=== PATIENT | male | born 1985 | race Hispanic/Latino ===

== ENCOUNTER 2022-10-17 20:54 | Emergency (ER) | payer OTHER ==
[~2022-10-17] VITALS: Ht 177.8 cm; Wt 99.8 kg
[2022-10-17 21:33] LABS: HEMATOCRIT 44.7 % (42-54); MEAN CORPUSCULAR HEMOGLOBIN 30.2 pg (27.0-33.0); MEAN CORPUSCULAR HGB CONC 33.3 g/dL (32.0-36.0); MEAN CORPUSCULAR VOLUME 90.5 fL (79-99); RED BLOOD CELL COUNT(AUTO) 4.94 MIL/uL (4.50-6.20); RED CELL DISTRIBUTION WIDTH 12.4 % (11.0-15.5); WHITE BLOOD COUNT (AUTO) 10.4 K/uL (4.8-10.8)
[2022-10-17 21:42] LABS: POTASSIUM 4.4 mmol/L (3.5-5.1)
[2022-10-17 21:47] LABS: TOTAL PROTEIN, SERUM 7.7 g/dL (6.0-8.3)
[2022-10-17 22:40] VITALS: BP 124/76
== END 2022-10-17 23:00 | disposition home or self-care (01) ==
LOC: EDH 20:54
DX: F43.0 Acute stress reaction (principal); F41.9 Anxiety disorder, unspecified; R06.89 Other abnormalities of breathing; I10 Essential (primary) hypertension
CPT/HCPCS: 36415; 80053; 84484; 85027; 93005